=== PATIENT | female | born 1985 | race Caucasian/White ===

== ENCOUNTER 2021-06-19 22:14 | Emergency (ER) | payer BC, OTHER ==
[2021-06-19 22:37] VITALS: BP 128/112; PULSE 83
--- NOTE | 2021-06-19 22:56 | EDM.PDOC ---
ED HPI GENERAL MEDICAL PROBLEM - General Chief Complaint: Lower Extremity Injury/Pain Stated Complaint: FOOT PAIN/STEPPED ON NAIL Time Seen by Provider: 06/19/21 22:43 - History of Present Illness INITIAL COMMENTS - FREE TEXT/NARRATIVE: 35-year-old female presents the emergency room after stepping on a nail with her right foot earlier today. Patient says her this morning the patient stepped on a nail bed three fourths of an inch long. She thinks it went pretty deep into her right heel. It is been getting sore as the day progressed today. She is not had any bleeding or drainage from the area. She was not wearing his socks or shoes. Patient denies any other injuries associated with this most unfortunate event. Patient denies any possibility of being . 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 Other BOW STAPLER History: D & C 05/08/2015 Psychiatric History: Reports: ADD, OCD - Infectious Disease History Infectious Disease History: Reports: Chicken Pox, Shingles - Past Surgical History HEENT Surgical History: Reports: Tonsillectomy Female Surgical History: Reports: D&C Social & Family History - Caffeine Use Caffeine Use: Reports: None Review of Systems - Review of Systems Review Of Systems: See Below Constitutional: Reports: No Symptoms Respiratory: Reports: No Symptoms Cardiovascular: Reports: No Symptoms GI/Abdominal: Reports: No Symptoms Musculoskeletal: Reports: No Symptoms Skin: Reports: No Symptoms ED EXAM, GENERAL - Physical Exam Exam: See Below Exam Limited By: No Limitations General Appearance: Alert, No Apparent Distress Respiratory/Chest: No Respiratory Distress, Lungs Clear, Normal Breath Sounds Cardiovascular: Regular Rate, Rhythm, No Edema, No Murmur Extremities: Other (Patient right foot shows superficial puncture wound on the bottom of her heel no bleeding or drainage from the area. It is tender nonerythematous.) Course - Vital Signs Last Recorded V/S: Last Vital Signs Temp 36.9 C 06/19/21 22:31 Pulse 83 06/19/21 22:31 Resp 20 06/19/21 22:31 BP 128/112 H 06/19/21 22:31 Pulse Ox 100 06/19/21 22:31 - Orders/Labs/Meds Orders: Active Orders 24 hr Category Date Time Status Vaccine to be Administered/Admin Charge [RC] ASDIRECTED Care 06/19/21 23:04 Active Foot Comp Min 3V Rt [CR] Stat Exams 06/19/21 23:03 Ordered Meds: Medications Discontinued Medications Generic Name Dose Route Start Last Admin Trade Name Adenike PRN Reason Stop Dose Admin Cephalexin 500 mg 06/19/21 23:08 06/19/21 23:16 Cephalexin 500 Mg Cap PO 06/19/21 23:09 500 mg ONETIME ONE Administration Diphtheria/Tetanus/Acell Pertussis 0.5 ml 06/19/21 23:03 06/19/21 23:12 Diphtheria,Pertussis(Acell),Tetanus Vaccine 0.5 Ml Syringe IM 06/19/21 23:04 0.5 ml .ONCE ONE Administration - Re-Assessments/Exams Free Text/Narrative Re-Assessment/Exam: 06/19/21 23:07 We will update tetanus start prophylactic antibiotics and check a chest x-ray. 06/20/21 00:29 Her x-ray examination of her foot is entirely within normal limits. We will discharge patient home with with a prescription for Keflex. Departure - Departure Time of Disposition: 00:29 Disposition: Home, Self-Care 01 Clinical Impression: Puncture wound of right heel - Discharge Information Referrals: Rica Guevara MD [Primary Care Provider] - Forms: ED Department Discharge Additional Instructions: Return to the emergency room with any questions problems or worsening symptoms. Take the antibiotics as directed take until they are all gone. Follow-up in the clinic this next week if needed. Sepsis Event Note (ED) - Evaluation Sepsis Screening Result: No Definite Risk - Focused Exam Vital Signs: Vital Signs Temp Pulse Resp BP Pulse Ox 06/19/21 22:31 36.9 C 83 20 128/112 H 100 - My Orders Last 24 Hours: My Active Orders 06/19/21 23:03 Foot Comp Min 3V Rt [CR] Stat 06/19/21 23:04 Vaccine to be Administered/Admin Charge [RC] ASDIRECTED - Assessment/Plan Last 24 Hours: My Active Orders 06/19/21 23:03 Foot Comp Min 3V Rt [CR] Stat 06/19/21 23:04 Vaccine to be Administered/Admin Charge [RC] ASDIRECTED
[2021-06-19] MEDS ORDERED: Diphtheria,Pertussis(Acell),Tetanus Vaccine 0.5 ML Syringe IM ONE (23:03)
[2021-06-19] MEDS ORDERED: Cephalexin 500 MG Cap PO ONE (23:08)
--- NOTE | 2021-06-20 09:14 | CR ---
Right foot: 3 views of the right foot were obtained. Comparison: No prior foot study is available. No radiopaque foreign body is seen within the soft tissues. No fracture, dislocation or other bony abnormality is appreciated. Impression: 1. Nothing acute is seen on right foot exam. Diagnostic code #1
== END 2021-06-20 00:39 | disposition home or self-care (01) ==
LOC: JD.ED 22:14
DX: S91.331A Puncture wound without foreign body, right foot, initial encounter (principal); Z23 Encounter for immunization; W45.0XXA Nail entering through skin, initial encounter
CPT/HCPCS: 73630; 90471; 90715; 99283; A9270

== ENCOUNTER 2022-07-20 03:34 | Emergency (ER) | payer OTHER ==
[2022-07-20 03:49] VITALS: BP 138/89; PULSE 117
[2022-07-20 04:37] LABS: CORONAVIRUS COVID-19 NAA NEGATIVE (NEGATIVE)
== END 2022-07-20 04:57 | disposition home or self-care (01) ==
LOC: JD.ED 03:34
DX: J32.9 Chronic sinusitis, unspecified (principal); B97.89 Other viral agents as the cause of diseases classified elsewhere; Z87.891 Personal history of nicotine dependence; Z20.822 Contact with and (suspected) exposure to COVID-19
CPT/HCPCS: 0241U; 99283